=== PATIENT | female | born 1985 | race African-American/Black ===

== ENCOUNTER 2023-02-02 10:37 | Emergency (ER) | payer MEDICAID, OTHER ==
[~2023-02-02] VITALS: Ht 170.2 cm; Wt 82.0 kg
[2023-02-02 10:42] VITALS: BP 113/75; PULSE 75; RESP 17; TEMP 98; O2SAT 100
[2023-02-02 11:35] LABS: BASOPHILS % 0.8 % (0.0-2.0); EOSINOPHILS % 3.7 % (0.0-5.0); HEMATOCRIT. 39.4 % (36.0-48.0); LYMPHOCYTES % 40.2 % (20.0-50.0); MEAN CORPUSCULAR HEMOGLOBIN 29.6 pg (28.0-32.0); MEAN CORPUSCULAR VOLUME 89.7 fL (81.0-99.0); MEAN PLATELET VOLUME 8.9 fl (7.4-10.4); MONOCYTES % 5.1 % (2.0-8.0); NEUTROPHILS % 50.2 % (40.0-76.0); PLATELET 228 x1000/uL (130-400); RED BLOOD CELL COUNT 4.39 mill/uL (4.2-5.4); RED CELL DISTRIBUTION WIDTH 13.6 % (11.6-14.6); WHITE BLOOD COUNT 5.2 x1000/uL (4.5-11.0)
[2023-02-02 11:41] LABS: CHLORIDE 108 mEq/L (98-107); INDEX HEMOLYSI 1 (1-3); INDEX ICTERIC 1 (1-4); INDEX LIPEMIC 1 (1-3); POTASSIUM 3.9 mEq/L (3.5-5.1); SODIUM 138 mEq/L (136-145)
[2023-02-02 11:50] LABS: ALANINE AMINOTRANSFERASE 22 IU/L (13-61); ALBUMIN 3.8 g/dL (3.4-5.0); ASPARTATE AMINOTRANSFERASE 12 IU/L (15-37); BILIRUBIN TOTAL 0.9 mg/dL (0.1-1.0); CALCIUM 9.2 mg/dL (8.5-10.1); CARBON DIOXIDE 28 mEq/L (21-32); CREATININE 0.7 mg/dL (0.6-1.3); GLUCOSE 94 mg/dL (70-105); NT PRO B-TYPE NATRIURETIC PEP 94 pg/mL (5-125); PROTEIN TOTAL 8.3 g/dL (6.0-8.3); UREA NITROGEN BLOOD 9 mg/dL (7-21)
[2023-02-02 11:51] LABS: HCG SCREEN NEGATIVE
[2023-02-02 12:15] LABS: TROPONIN I HIGH SENSITIVITY < 4 ng/L (<54)
[2023-02-02] MEDS ORDERED: TOPUD PO (13:56)
[2023-02-02] MEDS ORDERED: FAMO-135 PO (14:14)
== END 2023-02-02 14:39 | disposition home or self-care (01) ==
LOC: ER 11:20
DX: R10.13 Epigastric pain (principal)
CPT/HCPCS: 36415; 71045; 74176; 80053; 83880; 84484; 84703; 85025; 93005; 99285

== ENCOUNTER 2023-03-23 20:09 | Emergency (ER) | payer MEDICAID, OTHER ==
[~2023-03-23] VITALS: Ht 177.8 cm; Wt 94.3 kg
[~2023-03-23 20:09] MED LIST: FAMO-135 PO; TOPUD PO
[2023-03-23 20:41] VITALS: TEMP 98.8; O2SAT 100
[2023-03-23 21:40] LABS: CLARITY URINE CLOUDY (CLEAR); COLOR URINE YELLOW (YELLOW); GLUCOSE URINE NEGATIVE (NEGATIVE); KETONES URINE TRACE (NEGATIVE); LEUKOCYTE ESTERASE URINE TRACE (NEGATIVE); NITRITE URINE NEGATIVE (NEGATIVE); OCCULT BLOOD URINE NEGATIVE (NEGATIVE); PROTEIN URINE 2+ (NEGATIVE); SPECIFIC GRAVITY URINE 1.034 (1.005-1.030)
[2023-03-23 22:04] LABS: BACTERIA URINE 1+; RBC URINE 0-2 /hpf (0-2); SQUAMOUS EPITHELIAL CELL URINE 1+ /lpf (RARE/1+)
[2023-03-23] MEDS ORDERED: IBUPROFEN 600MG TABLET PO ONE (22:30)
[2023-03-23] MEDS ORDERED: BACITRACIN ZINC OINT UDPKT TOP ONE (22:30)
[2023-03-23] MEDS ORDERED: LIDOCAINE HCL/PF 1% 10 MG/ML 5ML VIAL INFIL ONE (22:30)
[2023-03-24 00:45] VITALS: BP 101/65; PULSE 71; RESP 16
[2023-03-24] MEDS ORDERED: IBUPROFEN 600MG TABLET PO NR (00:45)
[2023-03-24] MEDS ORDERED: LIDOCAINE HCL/PF 1% 10 MG/ML 5ML VIAL INFIL NR (00:45)
[2023-03-24] MEDS ORDERED: BACITRACIN ZINC OINT UDPKT TOP NR (00:45)
[2023-03-24] MEDS ORDERED: IBUP-2029 MT (01:25)
[2023-03-24] MEDS ORDERED: BO1 TP (01:25)
== END 2023-03-24 02:14 | disposition home or self-care (01) ==
LOC: ER 20:09
DX: S01.81XA Laceration without foreign body of other part of head, initial encounter (principal); W45.8XXA Other foreign body or object entering through skin, initial encounter; Y93.89 Activity, other specified; Y92.89 Other specified places as the place of occurrence of the external cause; Y99.8 Other external cause status
CPT/HCPCS: 99283; 81003; 81025; 12011; J3490